=== PATIENT | male | born 1965 | race Caucasian/White ===

== ENCOUNTER 2021-06-19 13:22 | Emergency (ER) | payer BC ==
[2021-06-19] MEDS ORDERED: Sodium Chloride 0.9% 1000 ML 1,000 ML IV STA (15:00)
[2021-06-19] MEDS ORDERED: Zofran 4 MG/2 ML VIAL IV ONE (15:04)
[2021-06-19] MEDS ORDERED: TYLENOL 325 MG PO STA (15:10)
--- NOTE | 2021-06-19 15:31 | XRAY ---
Indication: Short of breath. Suspect Covid 19. Comparison: None Portable chest hyperinflated with prominent interstitial lung markings. No focal infiltrate, consolidation, or large effusion. Heart not enlarged. Bony thorax intact with mild osteopenia and degenerative changes. Impression: Nonacute chest.
[2021-06-19 15:38] LABS: Absolute Neutrophil Ct (ANC) 2.67 (1.4-6.9); Basophil (Absolute #) 0.02 (0-0.4); Eosinophil % 0.5 % (0.00-5.0); Eosinophil (Absolute #) 0.02 (0-0.5); Hematocrit 37.4 % (42-50); Hemoglobin 12.3 gm/dl (12.5-18.0); Lymphocyte (Absolute #) 0.91 (1.0-4.6); Lymphocytes % 20.5 % (24.0-44.0); Mean Cell Volume 64.2 fl (78-100); Mean Corpuscular Hemoglobin 21.1 pg (26-32); Mean Corpuscular Hgb Concent. 32.9 g/dl (32-36); Mean Platelet Volume 10.9 fl (7.5-11.0); Monocyte (Absolute #) 0.82 (0.0-1.3); Monocytes % 18.5 % (0.0-12.0); Platelet Count 150 K/mm3 (150-450); Red Blood Count 5.83 M/mm3 (4.1-5.6); Red Cell Distribution Width 17.3 % (11.5-14.0); White Blood Count 4.4 K/mm3 (4.0-10.5)
[2021-06-19] MEDS ORDERED: Zofran 4 MG/2 ML VIAL ONE (15:41)
[2021-06-19] MEDS ORDERED: TYLENOL 325 MG ONE (15:42)
[2021-06-19] MEDS ORDERED: Sodium Chloride 0.9% 1000 ML 1,000 ML ONE (15:42)
[2021-06-19 15:47] LABS: ALBUMIN 4.2 g/dL (3.5-5.0); ALKALINE PHOSPHATASE 72 U/L (38-126); ANION GAP 13.7 MEQ/L (5-15); BLOOD UREA NITROGEN 11 mg/dL (9-20); CHLORIDE 100 mmol/L (98-107); Calcium 8.7 mg/dL (8.4-10.2); Carbon Dioxide 24 mmol/L (22-30); Creatinine 1 0.75 mg/dL (0.66-1.25); EST GLOMERULAR FILTRATION RATE > 60.0 ML/MIN; Glucose 200 mg/dL (74-106); SGOT/AST 108 U/L (17-59); SGPT/ALT 96 U/L (0-50); SODIUM 134 mmol/L (137-145); Total Protein 7.2 g/dL (6.3-8.2)
--- NOTE | 2021-06-19 17:17 | ERPHSYRPT ---
- History of Present Illness Time Seen by Provider: 06/19/21 13:40 Exam Limitations: no limitations Patient Subjective Stated Complaint: "I hurt everywhere." Triage Nursing Assessment: Patient reported having a positive home COVID test today 06/19/21 with associated headache, myalgias, malaise, and exertional dyspnea. he reported high glucose levels at home d/t not taking his metformin as prescribed. Reported nausea without vomiting. Pupils 3mm bilateral. Oral mucosa pink/moist. neck supple without JVD. Symmetrical chest expansion. heart tones S1/S2 RRR without extra sounds. Lungs vesicular with adequate airflow to the upper lobes bilateral. Diminished lung sounds bilateral. Peripheral pulses +2 bilateral. Abdomen obese non-distended, non-surgical, and without peritoneal signs. Bowel sounds present in all quadrants. No noted peripheral edema. Physician History: Patient is a 56-year-old male presents to our ED with complaints of headache myalgias generalized weakness dyspnea on exertion. Patient is Covid positive. Patient states he feels unwell has not taken his Metformin. Patient checked his glucose and stated it was high. He did not provide a number. Symptoms have been ongoing for the past day. Symptoms are constant. Symptoms are moderate in intensity. No specific worsening improving factors. No associated chest pain no nausea vomiting or diaphoresis. Patient voices no other complaints concerns at this time. Timing/Duration: today Severity: moderate Modifying Factors: Improves With: nothing Associated Symptoms: shortness of breath (Shortness of breath with exertion.) Allergies/Adverse Reactions: No Known Drug Allergies Allergy (Unverified 06/19/21 14:18) Home Medications: Metformin HCl [Metformin ER Osmotic] 1,000 mg PO BID 06/19/21 [History] Hx Tetanus, Diphtheria Vaccination/Date Given: No Hx Influenza Vaccination/Date Given: Yes Travel Risk - International Travel Have you traveled outside of the country in past 3 weeks: No - Coronavirus Screening Are you exhibiting any of the following symptoms?: Yes Symptoms: Fever, Cough: New Onset, Shortness of Breath, Headaches/Body Aches/Fatigue Close contact with a COVID-19 positive Pt in past 14-21 Days: No - Vaccine Status Have you recieved a Covid-19 vaccination: Yes [employer]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[employer] - Vaccination Dates Date of 2cond Vaccination (if applicable): 2020 - Review of Systems Constitutional: No Symptoms, No Fever, No Chills Eyes: No Symptoms Ears, Nose, & Throat: No Symptoms Respiratory: No Symptoms, No Cough, No Dyspnea Cardiac: No Symptoms, No Chest Pain, No Edema, No Syncope Abdominal/Gastrointestinal: No Symptoms, No Abdominal Pain, No Nausea, No Vomiting, No Diarrhea Genitourinary Symptoms: No Symptoms, No Dysuria Musculoskeletal: No Symptoms, No Back Pain, No Neck Pain Skin: No Symptoms, No Rash Neurological: No Symptoms, No Dizziness, No Focal Weakness, No Sensory Changes Psychological: No Symptoms Endocrine: No Symptoms Hematologic/Lymphatic: No Symptoms Immunological/Allergic: No Symptoms All Other Systems: Reviewed and Negative - Past Medical History Pertinent Past Medical History: Yes Cardiac History: High Cholesterol, Hypertension Endocrine Medical History: Diabetes Type II - Past Surgical History Past Surgical History: Yes Other Surgical History: Colonoscopy in 2018 - Social History Smoking Status: Current some day smoker Exposure to second hand smoke: No Drug Use: none Patient Lives Alone: No - Nursing Vital Signs Nursing Vital Signs: Initial Vital Signs Temperature 100.5 F 06/19/21 13:23 Respiratory Rate 18 06/19/21 13:23 Blood Pressure 170/96 06/19/21 13:23 O2 Sat by Pulse Oximetry 97 06/19/21 13:23 Pain Scale Pain Intensity 10 - Physical Exam General Appearance: no apparent distress, alert Eye Exam: PERRL/EOMI, eyes nml inspection Ears, Nose, Throat Exam: normal ENT inspection, TMs normal, pharynx normal, moist mucous membranes Neck Exam: normal inspection, non-tender, supple, full range of motion Respiratory Exam: normal breath sounds, lungs clear, airway intact, No chest tenderness, No respiratory distress Cardiovascular Exam: regular rate/rhythm, normal heart sounds, normal peripheral pulses Gastrointestinal/Abdomen Exam: soft, normal bowel sounds, No tenderness, No mass Back Exam: normal inspection, normal range of motion, No CVA tenderness, No vertebral tenderness Extremity Exam: normal inspection, normal range of motion, pelvis stable Neurologic Exam: alert, oriented x 3, cooperative, normal mood/affect, nml cerebellar function, nml station & gait, sensation nml, No motor deficits Skin Exam: normal color, warm, dry, No rash Lymphatic Exam: No adenopathy SpO2 Interpretation: normal SpO2: 98 O2 Delivery: Room Air - Course Nursing assessment & vital signs reviewed: Yes - Radiology Exams Chest X-ray Interpretation: Interpreted by me (Bilateral pulmonary opacities. Normal cardiac silhouette intact bony thorax.) Ordered Tests: Active Orders 24 hr Category Date Time Status EKG-ER Only STAT Care 06/19/21 15:00 Active IV Insertion STAT Care 06/19/21 15:00 Active Pulse Oximetry (ED) STAT Care 06/19/21 15:00 Active CHEST 1 VIEW (PORTABLE) Stat Exams 06/19/21 15:02 Completed CBC W DIFF Stat Lab 06/19/21 15:25 Completed CMP Stat Lab 06/19/21 15:25 Completed TROPONIN Q3H Lab 06/19/21 15:50 Completed TROPONIN Q3H Lab 06/19/21 19:15 Received TROPONIN Q3H Lab 06/19/21 21:45 Ordered Medication Summary Discontinued Medications Generic Name Dose Route Start Last Admin Trade Name Freq PRN Reason Stop Dose Admin Acetaminophen 975 mg 06/19/21 15:10 06/19/21 15:44 Acetaminophen 325 Mg Tablet PO 06/19/21 15:11 975 mg STAT STA Administration Acetaminophen Confirm 06/19/21 15:42 Acetaminophen 325 Mg Tablet Administered 06/19/21 15:43 Dose 975 mg .ROUTE .STK-MED ONE Sodium Chloride 1,000 mls @ 999 mls/hr 06/19/21 15:00 06/19/21 17:01 Sodium Chloride 0.9% 1000 Ml IV 06/19/21 16:00 Infused .Q1H1M STA Infusion Sodium Chloride Confirm 06/19/21 15:42 Sodium Chloride 0.9% 1000 Ml Administered 06/19/21 15:43 Dose 1,000 mls @ ud .ROUTE .STK-MED ONE Ketorolac Tromethamine 30 mg 06/19/21 17:26 06/19/21 18:28 Ketorolac Tromethamine 30 Mg/Ml Inj IV 06/19/21 17:27 30 mg STAT ONE Administration Ketorolac Tromethamine Confirm 06/19/21 18:28 Ketorolac Tromethamine 30 Mg/Ml Inj Administered 06/19/21 18:29 Dose 30 mg .ROUTE .STK-MED ONE Ondansetron HCl 4 mg 06/19/21 15:04 06/19/21 15:44 Ondansetron Hcl 4 Mg/2 Ml Vial IV 06/19/21 15:05 4 mg STAT ONE Administration Ondansetron HCl Confirm 06/19/21 15:41 Ondansetron Hcl 4 Mg/2 Ml Vial Administered 06/19/21 15:42 Dose 4 mg .ROUTE .[facility]-MED ONE Lab/Rad Data: Laboratory Result Diagrams 06/19/21 15:25 06/19/21 15:25 Laboratory Results 06/19/21 06/19/21 06/19/21 Range/Units 15:50 15:25 15:25 WBC 4.4 (4.0-10.5) K/mm3 RBC 5.83 H (4.1-5.6) M/mm3 Hgb 12.3 L (12.5-18.0) gm/dl Hct 37.4 L (42-50) % MCV 64.2 L (78-100) fl MCH 21.1 L (26-32) pg MCHC 32.9 (32-36) g/dl RDW 17.3 H (11.5-14.0) % Plt Count 150 (150-450) K/mm3 MPV 10.9 (7.5-11.0) fl Gran % 60.0 (36.0-66.0) % Eos # (Auto) 0.02 (0-0.5) Absolute Lymphs (auto) 0.91 L (1.0-4.6) Absolute Monos (auto) 0.82 (0.0-1.3) Lymphocytes % 20.5 L (24.0-44.0) % Monocytes % 18.5 H (0.0-12.0) % Eosinophils % 0.5 (0.00-5.0) % Basophils % 0.5 (0.0-0.4) % Absolute Granulocytes 2.67 (1.4-6.9) Basophils # 0.02 (0-0.4) Sodium 134 L (137-145) mmol/L Potassium 4.0 (3.5-5.1) mmol/L Chloride 100 (98-107) mmol/L Carbon Dioxide 24 (22-30) mmol/L Anion Gap 13.7 (5-15) MEQ/L BUN 11 (9-20) mg/dL Creatinine 0.75 (0.66-1.25) mg/dL Estimated GFR > 60.0 ML/MIN Glucose 200 H (74-106) mg/dL Calcium 8.7 (8.4-10.2) mg/dL Total Bilirubin 1.20 (0.2-1.3) mg/dL AST 108 H (17-59) U/L ALT 96 H (0-50) U/L Alkaline Phosphatase 72 (38-126) U/L Troponin I < 0.012 (0.000-0.034) ng/mL Serum Total Protein 7.2 (6.3-8.2) g/dL Albumin 4.2 (3.5-5.0) g/dL - Progress Progress: improved Progress Note: Patient reassessed. Headache significantly improved. Vitals are stable within normal limits. Chest x-ray suggestive of possible Covid pneumonia. However patient is otherwise asymptomatic and not hypoxic. No indication for further work-up at this time. 06/19/21 19:45 Counseled pt/family regarding: lab results, diagnosis, need for follow-up, rad results - Departure Departure Disposition: Observation Clinical Impression: Pneumonia due to COVID-19 virus, COVID-19, Shortness of breath, Hyperglycemia, Migraine Condition: Stable Critical Care Time: No Referrals: DOCTOR,NO FAMILY [Primary Care Provider] - Follow up/PCP as directed SHEYLA CADET [ACTIVE STAFF] - Follow up/PCP as directed Additional Instructions: Discharge/Care Plan ABIGAIL HUERTA was seen on 06/19/21 in the Emergency Room. The patient was counseled regarding Diagnosis,Lab results, Imaging studies, need for follow up and when to return to the Emergency Room. Prescriptions given: Discharge Note I have spoken with the patient and/or caregivers. I have explained the patient's condition, diagnosis and treatment plan based on the information available to me at this time. I have answered the patient's and/or caregiver's questions and addressed any concerns. The patient and/or caregivers have as good understanding of the patient's diagnosis, condition and treatment plan as can be expected at this point. The vital signs have been stable. The patient's condition is stable and appropriate for discharge from the emergency department. The patient will pursue further outpatient evaluation with the primary care physician or other designated or consulting physician as outlined in the discharge instructions. The patient and/or caregivers are agreeable to this plan of care and follow-up instructions have been explained in detail. The patient and/or caregivers have received these instruction. The patient/and or caregivers are aware that any significant change in condition or worsening of symptoms should prompt an immediate return to this or the closest emergency department or call 911.
[2021-06-19] MEDS ORDERED: TORAdol 30 mg Injection IV ONE (17:26)
[2021-06-19] MEDS ORDERED: TORAdol 30 mg Injection ONE (18:28)
[2021-06-19 19:46] VITALS: BP 156/84; PULSE 66
[2021-06-19 19:51] VITALS: O2SAT 98
== END 2021-06-19 19:56 | disposition home or self-care (01) ==
LOC: ED 13:22
DX: U07.1 COVID-19 (principal); J12.82 Pneumonia due to coronavirus disease 2019; E11.65 Type 2 diabetes mellitus with hyperglycemia; Z79.84 Long term (current) use of oral hypoglycemic drugs; R51.9 Headache, unspecified; M79.10 Myalgia, unspecified site; R53.1 Weakness; E78.5 Hyperlipidemia, unspecified; I10 Essential (primary) hypertension; Z72.0 Tobacco use
CPT/HCPCS: 36000; 36415; 71045; 80053; 84484; 85025; 93005; 94760; 96360; 96374; 96375; 99284; U0003; J1885; J2405; A9270-GY

== ENCOUNTER 2023-08-01 07:01 | Emergency (ER) | payer OTHER ==
[2023-08-01 07:13] VITALS: TEMP 97.2
[2023-08-01 08:06] LABS: Absolute Neutrophil Ct (ANC) 7.14 x10^3/uL (1.4-6.9); BASOPHIL % 0.6 % (0.0-0.4); Basophil (Absolute #) 0.06 x10^3/uL (0-0.4); Eosinophil (Absolute #) 0 x10^3/uL (0-0.5); Hematocrit 39.6 % (42-50); Hemoglobin 12.4 g/dL (12.5-18.0); IMMATURE GRAN # 0.04 x10^3u/L (0.00-0.03); IMMATURE GRAN % 0.4 % (0.00-0.4); Lymphocyte (Absolute #) 2.65 x10^3/uL (1.0-4.6); Lymphocytes % 25.3 % (24.0-44.0); Mean Cell Volume 67.6 fL (78-100); Mean Corpuscular Hemoglobin 21.2 pg (26-32); Mean Corpuscular Hgb Concent. 31.3 g/dL (32-36); Mean Platelet Volume 10.6 fL (7.5-11.0); Monocyte (Absolute #) 0.58 x10^3/uL (0.0-1.3); Monocytes % 5.5 % (0.0-12.0); Neutrophil % 68.2 % (36.0-66.0); Platelet Count 206 x10^3/uL (150-450); Red Blood Count 5.86 x10^6/uL (4.1-5.6); Red Cell Distribution Width 15.8 % (11.5-14.0); White Blood Count 10.5 x10^3/uL (4.0-10.5)
[2023-08-01 08:18] LABS: ADD URINE CULTURE? NO (NO); Appearance Clear (Clear); Bacteria None Seen /HPF (None Seen); Bilirubin Negative (Negative); Blood Negative (Negative); Epithelial Cells None Seen /HPF (None Seen); Glucose, Urine Negative (Negative); Hyaline Casts NONE SEEN /LPF (0-2); Ketones Negative (Negative); Leukocyte Esterase Negative (Negative); Nitrite Negative (Negative); Ph 5.5 (4.6-8.0); Protein,Urine Dip Negative (Negative); RBC 0-2 /HPF (0-5); Specific Gravity <=1.005 (1.005-1.030); Urobilinogen 0.2 mg/dL (0.2); WBC 0-2 /HPF (0-5)
--- NOTE | 2023-08-01 08:19 | ERPHSYRPT ---
- History of Present Illness Time Seen by Provider: 08/01/23 07:43 Historian: patient Exam Limitations: no limitations Patient Subjective Stated Complaint: Right flank pain Triage Nursing Assessment: Patient ambulated back to ED and transferred self to bed. Patient A+O X3. Patient's skin pink, warm and dry. Patient complains of right flank/abdominal pain for the past two weeks on and off. Patient complains of diarrhea, nausea, but no vomiting. Patient denies urinary frequency, urgency or pain during urination. Physician History: 58 years old male with history of hypertension, diabetes mellitus presented in the ER with complains of right flank pain off and on for the last couple of weeks with gradual worsening. Aggravated with activity and moving in certain way, better with resting. Radiates to right groin/testicular area without any swelling of testicles. Patient reports mild increased urge to urinate but denies any hematuria or sense of incomplete voiding. Reports occasional nausea but no vomiting. No fever or chills reported. No history of kidney stones. Allergies/Adverse Reactions: No Known Drug Allergies Allergy (Verified 08/01/23 07:03) Home Medications: Metformin HCl [Metformin ER Osmotic] 1,000 mg PO BID 06/19/21 [History] Hx Tetanus, Diphtheria Vaccination/Date Given: No Hx Influenza Vaccination/Date Given: Yes Hx Pneumococcal Vaccination/Date Given: No Immunizations Up to Date: Yes Travel Risk - International Travel Have you traveled outside of the country in past 3 weeks: No - Coronavirus Screening Are you exhibiting any of the following symptoms?: No Close contact with a COVID-19 positive Pt in past 14-21 Days: No - Vaccine Status Have you recieved a Covid-19 vaccination: Yes [employer]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[employer] - Vaccination Dates Date of 2cond Vaccination (if applicable): 2020 - Review of Systems Constitutional: No Symptoms Eyes: No Symptoms Ears, Nose, & Throat: No Symptoms Respiratory: No Symptoms Cardiac: No Symptoms Abdominal/Gastrointestinal: Abdominal Pain, Nausea Genitourinary Symptoms: Dysuria, Flank Pain Musculoskeletal: No Symptoms Skin: No Symptoms Neurological: No Symptoms Psychological: No Symptoms Endocrine: No Symptoms Hematologic/Lymphatic: No Symptoms Immunological/Allergic: No Symptoms - Past Medical History Pertinent Past Medical History: Yes Cardiac History: High Cholesterol, Hypertension Endocrine Medical History: Diabetes Type II - Past Surgical History Past Surgical History: Yes Other Surgical History: Colonoscopy in 2018 - Social History Smoking Status: Current some day smoker How long have you smoked: years Exposure to second hand smoke: No Drug Use: none Patient Lives Alone: No - Nursing Vital Signs Nursing Vital Signs: Initial Vital Signs Temperature 97.2 F 08/01/23 07:04 Pulse Rate 79 08/01/23 07:04 Respiratory Rate 22 08/01/23 07:04 Blood Pressure 166/76 08/01/23 07:04 O2 Sat by Pulse Oximetry 97 08/01/23 07:04 Pain Scale Pain Intensity 0 - Physical Exam General Appearance: no apparent distress, alert Eye Exam: PERRL/EOMI Ears, Nose, Throat Exam: normal ENT inspection Neck Exam: normal inspection, non-tender, supple, full range of motion Respiratory Exam: normal breath sounds, lungs clear Cardiovascular Exam: regular rate/rhythm, normal heart sounds Gastrointestinal/Abdomen Exam: soft, normal bowel sounds, tenderness (Right flank) Extremity Exam: normal inspection, normal range of motion Neurologic Exam: alert, oriented x 3, cooperative, wound/ostomy nurse II-XII nml as tested Skin Exam: normal color SpO2 Interpretation: normal SpO2: 94 O2 Delivery: Room Air Ordered Tests: Active Orders 24 hr Category Date Time Status IV Insertion STAT Care 08/01/23 07:43 Active ABDOMEN AND PELVIS W/0 CONTRAS [CT] Stat Exams 08/01/23 07:44 Completed CBC W DIFF Stat Lab 08/01/23 07:35 Completed CMP Stat Lab 08/01/23 07:35 Completed LIPASE Stat Lab 08/01/23 07:35 Completed UA W/RFX UR CULTURE Stat Lab 08/01/23 07:46 Completed Lab/Rad Data: Laboratory Result Diagrams 08/01/23 07:35 08/01/23 07:35 Laboratory Results 08/01/23 08/01/23 08/01/23 Range/Units 07:46 07:35 07:35 WBC 10.5 (4.0-10.5) x10^3/uL RBC 5.86 H (4.1-5.6) x10^6/uL Hgb 12.4 L (12.5-18.0) g/dL Hct 39.6 L (42-50) % MCV 67.6 L (78-100) fL MCH 21.2 L (26-32) pg MCHC 31.3 L (32-36) g/dL RDW 15.8 H (11.5-14.0) % Plt Count 206 (150-450) x10^3/uL MPV 10.6 (7.5-11.0) fL Gran % 68.2 H (36.0-66.0) % Immature Gran % (Auto) 0.4 (0.00-0.4) % Nucleat RBC Rel Count 0.0 (0.00-0.1) % Eos # (Auto) 0 (0-0.5) x10^3/uL Immature Gran # (Auto) 0.04 H (0.00-0.03) x10^3u/L Absolute Lymphs (auto) 2.65 (1.0-4.6) x10^3/uL Absolute Monos (auto) 0.58 (0.0-1.3) x10^3/uL Absolute Nucleated RBC 0.00 (0.00-0.01) x10^3u/L Lymphocytes % 25.3 (24.0-44.0) % Monocytes % 5.5 (0.0-12.0) % Eosinophils % 0.0 (0.00-5.0) % Basophils % 0.6 (0.0-0.4) % Absolute Granulocytes 7.14 H (1.4-6.9) x10^3/uL Basophils # 0.06 (0-0.4) x10^3/uL Sodium 140 (135-145) mmol/L Potassium 4.2 (3.5-5.1) mmol/L Chloride 103 (98-107) mmol/L Carbon Dioxide 25 (22-30) mmol/L Anion Gap 15.2 H (5-15) MEQ/L BUN 14 (9-20) mg/dL Creatinine 0.86 (0.66-1.25) mg/dL Estimated GFR 100.4 ML/MIN Glucose 172 H (74-106) mg/dL Calcium 9.2 (8.4-10.2) mg/dL Total Bilirubin 1.00 (0.2-1.3) mg/dL AST 30 (17-59) U/L ALT 37 (0-50) U/L Alkaline Phosphatase 77 (38-126) U/L Serum Total Protein 7.5 (6.3-8.2) g/dL Albumin 4.5 (3.5-5.0) g/dL Lipase 92 (23-300) U/L Urine Color Yellow (Yellow) Urine Appearance Clear (Clear) Urine pH 5.5 (4.6-8.0) Ur Specific [place] <=1.005 (1.005-1.030) Urine Protein Negative (Negative) Urine Glucose (UA) Negative (Negative) mg/dL Urine Ketones Negative (Negative) Urine Blood Negative (Negative) Urine Nitrite Negative (Negative) Urine Bilirubin Negative (Negative) Urine Urobilinogen 0.2 (0.2) mg/dL Ur Leukocyte Esterase Negative (Negative) U Hyaline Cast (Auto) NONE SEEN (0-2) /LPF Urine Microscopic RBC 0-2 (0-5) /HPF Urine Microscopic WBC 0-2 (0-5) /HPF Ur Epithelial Cells None Seen (None Seen) /HPF Urine Bacteria None Seen (None Seen) /HPF Urine Culture Reflexed NO (NO) - Progress Progress: improved, re-examined Progress Note: 08/01/23 08:59 58 years old is evaluated for right flank pain off-and-on for the last couple of weeks. Patient had some tenderness in the right flank area. He is offered pain medication but declined. Workup showed normal white count, fairly unremarkable chemistries. No UTI. I have obtained CT abdomen pelvis without contrast which is negative for stone, acute cholecystitis, colitis, perforation, acute appendicitis, does have multiple other chronic findings like fatty liver, left-sided iliopsoas lipoma, splenomegaly, does not explain patient's symptoms. Pain could be musculoskeletal. I recommended using Tylenol and ibuprofen as needed to see if it helps. Patient does not have any midline back tenderness. Outpatient follow-up recommended. Discussed signs symptoms of worsening needing return to ER which she seems understanding. Stable for discharge. 08/01/23 09:01 Counseled pt/family regarding: lab results, diagnosis, need for follow-up, rad results Medical Desision Making - Diagnostic Testing Diagnostic test were ordered, analyzed, and reviewed by me: Yes Radiological Interpretation: Reviewed by me - Risk of complications The pt has a mod risk of morbidity or mortality based on: Need for prescription drug management - Departure Departure Disposition: Home Clinical Impression: Right flank pain Condition: Stable Critical Care Time: No Referrals: ROYCE,CHRISTIN FERDINAND, MD [Primary Care Provider] - Follow up with PCP 1 day Instructions: Flank Pain Additional Instructions: Take Tylenol/ibuprofen as needed for pain. Follow-up with primary care for reevaluation. Return to ER for intractable pain, difficulty urination, intractable nausea vomiting/fever chills etc. Prescriptions: Ibuprofen 600 mg PO Q6HPRN PRN 10 Days #20 tablet PRN Reason: Pain
[2023-08-01 08:20] LABS: ALBUMIN 4.5 g/dL (3.5-5.0); ANION GAP 15.2 MEQ/L (5-15); Calcium 9.2 mg/dL (8.4-10.2); Creatinine 1 0.86 mg/dL (0.66-1.25); EST GLOMERULAR FILTRATION RATE 100.4 ML/MIN; Potassium 4.2 mmol/L (3.5-5.1); Total Protein 7.5 g/dL (6.3-8.2)
--- NOTE | 2023-08-01 08:33 | XRAY ---
Indication: Right flank pain. Multiple contiguous axial images obtained through the abdomen and pelvis without contrast using renal stone protocol. Comparison: None Lung bases clear. Heart not enlarged. Small hiatal hernia. No renal calculus or evidence for obstructive uropathy in either system. Noncontrasted stomach and bowel loops appear nonobstructed with normal appendix. Mild scattered colonic diverticulosis without diverticulitis. Incidental 2.3 cm rounded left adrenal adenoma, small hepatic calcified granuloma, mild diffuse fatty liver, and 15.9 cm splenomegaly. No free fluid/air. Remaining liver, gallbladder, pancreas, spleen, adrenal glands, kidneys, ureters, and bladder are unremarkable for noncontrast exam. Minimal scattered aortoiliac calcifications without AAA. Osseous structures intact with mild degenerative changes throughout the spine. Left iliopsoas muscle demonstrates 2.0 x 2.6 x 5.0 cm intramuscular lipoma. Impression: 1. Negative renal calculus or evidence for obstructive uropathy. 2. Chronic findings including hiatal hernia, colonic diverticulosis, left adrenal adenoma, fatty liver, splenomegaly, hepatic calcified granuloma, arteriosclerotic disease, degenerative spondylosis, and left iliopsoas intramuscular lipoma.
[2023-08-01 08:36] VITALS: BP 144/76; PULSE 70; RESP 18
[2023-08-01 09:07] VITALS: O2SAT 94
== END 2023-08-01 09:24 | disposition home or self-care (01) ==
LOC: ED 07:01
DX: R10.31 Right lower quadrant pain (principal); I10 Essential (primary) hypertension; E11.9 Type 2 diabetes mellitus without complications; E78.5 Hyperlipidemia, unspecified; F17.200 Nicotine dependence, unspecified, uncomplicated; Z79.899 Other long term (current) drug therapy; Z20.828 Contact with and (suspected) exposure to other viral communicable diseases
CPT/HCPCS: 36000; 36415; 74176; 80053; 81001; 83690; 85025; 99283

== ENCOUNTER 2023-11-20 05:51 | Day surgery (SDC) | payer OTHER ==
[2023-11-20] MEDS ORDERED: Lactated Ringers 1,000 ML IV ONE (06:17)
[2023-11-20 06:30] VITALS: PULSE 97; RESP 16; TEMP 97.6; O2SAT 98
[2023-11-20] MEDS: Lactated Ringers 1,000 ML IV SCH (06:38)
[2023-11-20] MEDS ORDERED: DIPRIVAN 200 MG/20 ML IV ONE (07:15)
[2023-11-20 08:09] VITALS: BP 108/44
--- NOTE | 2023-11-21 14:34 | OP ---
SURGERY DATE/TIME: 11/20/2023 6213 [id number] PREOPERATIVE DIAGNOSIS: Screening colonoscopy. POSTOPERATIVE DIAGNOSES: 1) Normal colon. 2) Diverticulosis. PROCEDURE: Colonoscopy. SURGEON: Phil Avalos MD ANESTHESIA: MAC. ESTIMATED BLOOD LOSS: None. SPECIMENS: None. DESCRIPTION OF PROCEDURE AND FINDINGS: After informed written consent was obtained, the patient was taken to the endoscopy suite. He was placed in the left lateral decubitus position and anesthesia was titrated to desired level of consciousness. Digital rectal exam showed normal sphincter tone. No internal lesions. Scope was inserted in the rectum and sequentially the entire colonic mucosa was traversed. Level of cecum was reached and verified with direct visualization of the ileocecal valve. Upon withdrawal, careful mucosal inspection revealed scattered diverticulosis with no other mucosal lesions. Prep was noted to be good. Prior to withdrawal, retroflexion showed no internal lesions. Scope was removed and patient was transferred to the recovery room in good condition.
== END 2023-11-20 08:04 | disposition home or self-care (01) ==
LOC: SDC 05:51
PROVIDERS: ATTEND Family Medicine
DX: Z12.11 Encounter for screening for malignant neoplasm of colon (principal); K57.30 Diverticulosis of large intestine without perforation or abscess without bleeding; E11.9 Type 2 diabetes mellitus without complications
CPT/HCPCS: 82947; J2704